=== PATIENT | male | born 1980 | race Caucasian/White ===

== ENCOUNTER 2016-11-19 00:22 | Emergency (ER) | payer MEDICAID ==
[~2016-11-19] VITALS: Ht 180.3 cm; Wt 114.0 kg
[~2016-11-19 00:22] MED LIST: BACTDS PO; CEPH-443 PO; HYDR-3498 PO; HYDR-762 PO; IBUP-1542 PO; IBUP800T25 PO
[2016-11-19 00:32] VITALS: Ht 180.3 cm; Wt 114.0 kg
[2016-11-19] MEDS ORDERED: ALBU8.5H3 INH (02:45)
[2016-11-19] MEDS ORDERED: AZIT250T94 PO (02:45)
--- NOTE | 2016-11-19 02:48 | ERD ---
ER Documentation Chief Complaint Date/Time DATE: 11/19/16 TIME: 02:47 Chief Complaint cough/sore throat x 4 days HPI This is a 35-year-old male who presents to the ER with a cough for the last 3 days. Patient has had a fever, however fever has resolved. Patient is also complaining of losing his voice and sore throat. He denies any shortness of breath, chest pain or history of asthma. There are no sick contacts at home ROS 12 point review of systems was done, all negative except per HPI.. Medications Home Meds Active Scripts Albuterol Sulfate* (Proair HFA*) 8.5 Gm Hfa.aer.ad, 2 PUFF INH Q4, #1 INHALER Prov:VELMA DOUGHERTY 11/19/16 Azithromycin* (Zithromax*) 250 Mg Tablet, 250 MG PO .ZPACK DIRECTED, #6 TAB TAKE 500 MG (2 TABS) THE FIRST DAY THEN 250 MG (1 TAB) DAYS 2-5 Prov:VELMA DOUGHERTY 11/19/16 Sulfamethoxazole-Trimethoprim* (Bactrim* DS) 800-160 Mg Tab, 1 TAB PO BID for 5 Days, TAB Prov:EVA VALENZUELA-C 07/26/16 Cephalexin* (Keflex*) 500 Mg Capsule, 500 MG PO QID for 10 Days, CAP Prov:EVA VALENZUELA PA-C 07/26/16 Hydrocodone Bit-Acetaminophen* ([place]*) 5-325 Mg Tab, 1 TAB PO Q6 Y for PAIN, # 20 TAB Prov:ALEX GUPTA NP 02/15/16 Ibuprofen* (Motrin*) 600 Mg Tab, 600 MG PO Q6H Y for PAIN AND OR ELEVATED TEMP, #30 TAB Prov:ALEX GUPTA NP 02/15/16 Cephalexin* (Keflex*) 500 Mg Capsule, 500 MG PO QID for 10 Days, CAP Prov:ALEX GUPTA BROADCAST PRODUCER 02/15/16 Sulfamethoxazole-Trimethoprim* (Bactrim* DS) 800-160 Mg Tab, 1 TAB PO BID for 10 Days, TAB Prov:ALEX GUPTA NP 5/9/16 Ibuprofen* (Motrin*) 800 Mg Tab, 800 MG PO Q6, #20 TAB Prov:ZANDER GALLARDO MD 05/26/15 Hydrocodone Bit-Acetaminophen* ([place]*) 10-325 Mg Tablet, 1 TAB PO Q6 Y for PAIN , #14 TAB Prov:ZANDER GALLARDO MD 05/26/15 Reported Medications [none] Unknown Strength No Conflict Check 02/15/16 Allergies Allergies: Coded Allergies: No Known Allergy (Unverified , 11/19/16) PMhx/Soc Medical and Surgical Hx: pt denies Medical Hx, pt denies Surgical Hx Hx Alcohol Use: Yes (socially) Hx Substance Use: Yes (Marijuana) Hx Tobacco Use: No Smoking Status: Never smoker Physical Exam Vitals Vital Signs Date Time Temp Pulse Resp B/P Pulse Ox O2 Delivery O2 Flow Rate FiO2 11/19/16 00:32 98.3 88 20 158/74 97 Physical Exam GENERAL: The patient is well-developed, well-nourished, in no acute distress. NECK: Cervical spine is non tender with no step off. Supple, no nuchal rigidity HEENT: Atraumatic. Pupils equal, round and reactive to light. Extraocular muscles are grossly intact. Conjunctivae pink, no discharge. Bilateral tympanic membranes are clear with no evidence of erythema, effusion or dulling of the light reflex. Tonsilar erythema with no exudates or uvular deviation. Clear rhinorrhea. RESPIRATORY: Clear to auscultation bilaterally. There are no rales, wheezes or rhonchi. HEART: Regular rate and rhythm. No murmurs, clicks, rubs or gallops. EXTREMITIES: No clubbing or cyanosis. Full range of motion. Grossly neurovascularly intact. NEUROLOGIC: Alert and oriented. Cranial nerves II through XII are intact. SKIN: There is no rash. The skin is warm and dry. Procedures/MDM Differential diagnosis includes but is not limited to; Viral URI, allergic rhinitis, bronchitis, pertussis,pneumonia. This is likely bronchitis. Clinical suspicion for pneumonia is low as patient appears well, is not hypoxic or in any respiratory distress. Additionally, patients physical examination is benign. Plan was discussed with patient they understand and agree. Patient needs to follow up with PCP in 1-2 days or return to ER sooner if symptoms worsen. Departure Diagnosis: Primary Impression: Bronchitis Condition: Stable Patient Instructions: Bronchitis With Wheezing (Adult) Additional Instructions: Call your primary care doctor TOMORROW for an appointment during the next 1-2 days.See the doctor sooner or return here if your condition worsens before your appointment time. VELMA DOUGHERTY Nov 19, 2016 02:48
[2016-11-19 02:59] VITALS: BP 144/70; PULSE 89; RESP 20; TEMP 98.7
== END 2016-11-19 02:59 | disposition home or self-care (01) ==
LOC: FTE 00:22
DX: J20.9 Acute bronchitis, unspecified (principal)
CPT/HCPCS: 99284

== ENCOUNTER 2016-12-20 20:23 | Emergency (ER) | payer MEDICAID ==
[~2016-12-20] VITALS: Ht 182.9 cm; Wt 112.5 kg
[~2016-12-20 20:23] MED LIST changes: +ALBU8.5H3 INH; +AZIT250T94 PO
[2016-12-20 20:29] VITALS: Ht 182.9 cm; Wt 112.5 kg
[2016-12-21] MEDS ORDERED: KETOROLAC 30 MG INJ IM STA (00:17)
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
[2016-12-21] MEDS ORDERED: IBUP-1542 PO (02:32)
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
[2016-12-21 03:57] VITALS: BP 143/68; PULSE 83; RESP 16
== END 2016-12-21 03:59 | disposition home or self-care (01) ==
LOC: FTE 20:23
DX: S25 Injury of blood vessels of thorax (principal); S49.92XA Unspecified injury of left shoulder and upper arm, initial encounter; S49.91XA Unspecified injury of right shoulder and upper arm, initial encounter; V49.59XA Passenger injured in collision with other motor vehicles in traffic accident, initial encounter; Z87.891 Personal history of nicotine dependence
CPT/HCPCS: 71010; 71110; 73030; 96372; J1885; Z7502